=== PATIENT | female | born 1990 ===

== ENCOUNTER 2020-12-18 20:30 | Outpatient (REF) | payer MEDICAID, SELFPAY ==
[2020-12-18 21:23] LABS: BUN 9 mg/dL (7-18); CREATININE 0.8 mg/dL (0.55-1.02); Calcium 9.2 mg/dL (8.5-10.1); Calculated LDL 122 mg/dL (<100); Chloride 105 mmol/L (98-107); Cholesterol 187 mg/dL (<200); Glucose 90 mg/dL (74-106); HDL Cholesterol 52 mg/dL (40-60); Potassium 4.4 mmol/L (3.5-5.1); Sodium 141 mmol/L (136-145); Triglyceride 66 mg/dL (<150)
[2020-12-20 10:06] LABS: HBs Antibody, Quant 12.3 mIU/mL (See Note); Hepatitis B Surface Ab Positive (See Note)
[2020-12-20 10:14] LABS: HIV-1/2 Ag & Ab Screen Negative (Negative)
[2020-12-20 10:27] LABS: Hepatitis C Ab w Rflx HCV PCR Negative (Negative)
[2020-12-20 11:04] LABS: Syphilis Serology (RPR) Negative (Negative)
[2020-12-20 15:28] LABS: Chlamydia Result Negative (Negative); GC Result Negative (Negative)
== END 2020-12-18 20:31 | disposition home or self-care (01) ==
LOC: NCHCN 20:30
PROVIDERS: Visit Provider Nurse Practitioner Family
DX: E78.00 Pure hypercholesterolemia, unspecified (principal); Z11.3 Encounter for screening for infections with a predominantly sexual mode of transmission; Z11.4 Encounter for screening for human immunodeficiency virus [HIV]; Z11.59 Encounter for screening for other viral diseases
CPT/HCPCS: 80048; 80061; 86706; 86803; 87389; 87491; 87591; 86592

== ENCOUNTER 2021-03-05 15:49 | Outpatient (REF) | payer MEDICAID, SELFPAY ==
[2021-03-05 21:14] LABS: HCT 40.1 % (36.0-46.0); HGB 12.9 g/dL (11.2-15.7); MCH 27.7 pg (27.0-33.0); MCHC 32.2 % (32.0-36.0); MCV 86.1 fL (80-95); MPV 11.6 fL (8.0-11.0); Platelet Count 230 10^3/uL (130-400); RBC 4.66 10^6/uL (3.93-5.22); RDW 15.6 % (11.7-14.6); RDW-SD 49.2 fL
[2021-03-05 21:35] LABS: ALT 25 U/L (14-59); AST 19 U/L (15-37); Albumin 4.3 g/dL (3.4-5.0); Alkaline Phosphatase 68 U/L (46-116); Anion Gap 8.6 mmol/L (3-11); BUN 8 mg/dL (7-18); Bilirubin, Total 0.4 mg/dL (0.2-1.0); CO2 27.4 mmol/L (21.0-32.0); CREATININE 0.8 mg/dL (0.55-1.02); Calcium 9.3 mg/dL (8.5-10.1); Chloride 104 mmol/L (98-107); Glucose 84 mg/dL (74-106); Potassium 4.5 mmol/L (3.5-5.1); Sodium 140 mmol/L (136-145); TSH (W/Ref FT4) 1.38 uIU/mL (0.36-3.74); Total Protein 7.5 g/dL (6.4-8.2)
[2021-03-06 17:14] LABS: Magnesium 1.9 mg/dL (1.7-2.8)
== END 2021-03-05 15:50 | disposition home or self-care (01) ==
LOC: NCHCN 15:49
PROVIDERS: Visit Provider Nurse Practitioner Family
DX: R00.2 Palpitations (principal)
CPT/HCPCS: 80053; 85027; 83735; 84443

== ENCOUNTER 2022-11-11 13:49 | Outpatient (REF) | payer OTHER, SELFPAY ==
--- NOTE | 2022-11-11 10:45 | PAPFT_PTH ---
PATIENT: Yaa Nunn LOC: [facility]#:[id number] AGE/SX: 32/F ROOM: RE11/11/[address]: Tonya Montesinos : 1990 BED: DIS: 11/11/2022 SPEC #: [id number] RECD: 11/11/22 17:19 STATUS: JORDAN DAVE #: [id number] BRANDI: 11/11/22 10:[address]: Tonya Montesinos DEPT: [facility] Cytology RECD BY: Johanna Gunderson Tissues: 1 - CX/ENDOCX FOR PAP SMEARS Procedures: PAP THIN PREP/[facility] Screening HPV DNA PROBE Comments: [id number] (CHLAMYDIA/GC)
[2022-11-12 14:50] LABS: Chlamydia Result Negative (Negative); GC Result Negative (Negative)
== END 2022-11-11 13:50 | disposition home or self-care (01) ==
LOC: NCHCN 13:49
PROVIDERS: Visit Provider Nurse Practitioner Family
DX: Z11.3 Encounter for screening for infections with a predominantly sexual mode of transmission (principal); Z12.4 Encounter for screening for malignant neoplasm of cervix; Z11.51 Encounter for screening for human papillomavirus (HPV)
CPT/HCPCS: 87491; 87591; 88142; 87624